=== PATIENT | male | born 1985 | race Caucasian/White ===

== ENCOUNTER 2018-04-02 03:58 | Inpatient (IN) ==
[2018-04-02] MEDS ORDERED: Ketorolac 15 MG/ML VIAL IVP ONE (04:20)
[2018-04-02] MEDS ORDERED: Isovue-370 500 ML INFUS..BTL IV ONE (04:21)
[2018-04-02] MEDS ORDERED: 0.9 % Sodium Chloride 1,000 ML IVC ONE ×2 (04:34→06:31)
[2018-04-02] MEDS ORDERED: 0.9 % Sodium Chloride 1,000 ML ONE (04:36)
[2018-04-02 04:46] LABS: Basophils % 0.2 %; Lymphocytes % 7.8 %; Mean Corpuscular HGB Conc 35.4 g/dL (31.6-35.5)
[2018-04-02 04:47] LABS: Basophils # 0.1 K/mcL (0.0-0.2); Hematocrit 49.5 % (37.5-50.1); Hemoglobin 17.5 g/dL (12.9-16.9); Lymphocytes # 2.5 K/mcL (0.6-4.6); Mean Corpuscular Hemoglobin 31.4 pg (28.0-33.3); Mean Corpuscular Volume 88.7 fL (83.0-100.0); Mean Platelet Volume 11.5 fL (9.4-12.4); Monocytes # 2.6 K/mcL (0.0-1.3); Monocytes % 8.3 %; Neutrophils # 24.9 K/mcL (1.6-8.9); Platelet Count 224 K/mcL (140-400); Red Blood Count 5.58 M/mcL (4.19-5.50); Red Cell Distribution Width 12.8 % (11.5-14.5); Segmented Neutrophils % 78.7 %
[2018-04-02 05:06] LABS: Albumin 4.8 g/dL (3.5-5.7); Albumin/Globulin Ratio 1.4 (1.1-2.2); Bilirubin,Total 1.1 mg/dL (0.3-1.0); Globulin 3.4 g/dL (2.4-3.5); Platelet Estimate Normal (Normal); Potassium 4.3 mEq/L (3.5-5.1); Total Protein 8.2 g/dL (6.4-8.9)
--- NOTE | 2018-04-02 05:50 | Emergency Department Note ---
Disposition Clinical Impression: Tachycardia Acute appendicitis Qualifiers: Acute appendicitis type: with localized peritonitis Qualified Code(s): K35.3 - Acute appendicitis with localized peritonitis Sepsis Qualifiers: Sepsis type: sepsis due to unspecified organism Qualified Code(s): A41.9 - Sepsis, unspecified organism Acute renal failure Qualifiers: Acute renal failure type: unspecified Qualified Code(s): N17.9 - Acute kidney failure, unspecified Disposition: Still a Patient Condition: Fair Referrals: NONE,PCP [Primary Care Provider] - Time of Disposition: 06:35 Abdominal Pain HPI - General Chief Complaint: ED Abdominal Pain Stated Complaint: Hernia Pain Time Seen by Provider: 04/02/18 04:20 Source: patient Mode of arrival: private vehicle Limitations: no limitations Nursing Notes Reviewed: Yes Vital Signs Reviewed: Yes - History of Present Illness HPI Narrative: Cristóbal is a pleasant 32 yo M. he presents the emergency room with a chief complaint of abdominal pain starting Saturday around 1 AM with some vomiting. He notes a long-standing history of a hernia however states the hernia pain will come and go starting for roughly lasting roughly 2 hours and going away either on its own or with one dose of ibuprofen. Since Saturday and the vomiting he has not been able to control this pain with [id number] medication which is atypical for him. He denies fevers chest pain nausea vomiting. He states that he feels sweaty. He denies past medical history of kidney issues. He states he has had decreased oral intake. Notes generalized pelvic pain and states that he feels the pain is in his testicle / scrotal area. He also notes mild and diffuse abdominal pain. Pt Subjective Complaint: abdominal pain Onset (ago): day(s) Consistency: constant Location: diffuse Pain Scale: 7 Improves with: nothing Worsens with: movement - Related Data Previous Rx's Medication Instructions Recorded Amoxicillin 875 mg PO BID #20 tablet 03/25/16 Sulfacetamide Sodium 10% OPTH 2 drop RIGHT EYE QID #5 ml 03/25/16 [Bleph 10] Allergies Allergy/AdvReac Type Severity Reaction Status Date / Time No Known Allergies Allergy Verified 04/02/18 03:59 All systems ED: reviewed and negative except as stated. Review of Systems: As Per HPI Limitations: ROS unobtainable due to patients medical condition Constitutional: Denies: fever, chills, weight change Eyes: Reports: as per HPI ENT ED: Reports: as per HPI Cardiovascular: Reports: as per HPI Respiratory: Reports: as per HPI Gastrointestinal: Reports: abdominal pain. Denies: melena, hematochezia Genitourinary: Denies: urgency, dysuria Musculoskeletal: Reports: as per HPI Abdominal Pain PMH - Past Medical History Medical history: Reports: other Male Surgical History: Reports: orthopedic, other Psychiatric history: Reports: no psych history - Social History Smoking status: Current every day smoker Alcohol use: Reports: rarely Drug use: Reports: none Physical Exam - General Limitations: no limitations General appearance: alert - Head Head exam: atraumatic - ENT ENT exam: normal exam - Neck Neck exam: Present: normal inspection - Respiratory Respiratory exam: Present: normal lung sounds bilaterally - Cardiovascular Cardiovascular exam: Present: regular rate, normal rhythm - Abdominal Exam Abdominal exam: Present: tenderness, rebound, normal bowel sounds - Male exam: Present: normal inspection (No palpable hernia direct or indirect), normal testicular lie, circumcised. Absent: penile swelling, balanitis, priapism Course Course Narrative: Patient eats Sirs criteria with tachycardia in the 140s, leukocytosis at 30/30, 000, perforated acute appendicitis on CT along with acute renal failure. IV Unasyn was ordered immediately following review of CT. I discussed this case initially with Dr. Flood who requested IV antibiotics for 24-48 hours prior to taking him to the OR. Dr. Flood came into the emergency room to personally evaluate the patient. Patient was given 3 L of fluid in the emergency room. Hair of the panic patient was transferred both to Dr. Barreto and 2 [employer] [facility] pending the end of my shift. The question remains where who will admit the patient. Dr. Flood and Dr. Olivas are both involved in the patient's care. Vital Signs Temperature 98.1 F 04/02/18 03:59 Pulse Rate 144 04/02/18 03:59 Respiratory Rate 20 04/02/18 03:59 Blood Pressure 137/92 04/02/18 03:59 O2 Sat by Pulse Oximetry 97 04/02/18 03:59 Temperature 98.1 F 04/02/18 03:59 Pulse Rate 123 04/02/18 04:30 Respiratory Rate 20 04/02/18 04:30 Blood Pressure 124/92 04/02/18 04:30 O2 Sat by Pulse Oximetry 99 07/04/18 04:30 Oxygen Delivery Oxygen Delivery Room Air Abdominal Pain - MDM Narrative Medical decision making narrative: Patient with a pulse in the 140s with significant leukocytosis in the 30s. Patient also has new onset renal failure. The suspect - Lab Data Result diagrams: 04/02/18 04:25 04/02/18 04:25 Lab Results 04/02/18 04/02/18 04/02/18 Range/Units 04:25 04:25 04:25 WBC 31.6 H* (4.3-11.1) K/mcL RBC 5.58 H (4.19-5.50) M/mcL Hgb 17.5 H (12.9-16.9) g/dL Hct 49.5 (37.5-50.1) % MCV 88.7 (83.0-100.0) fL MCH 31.4 (28.0-33.3) pg MCHC 35.4 (31.6-35.5) g/dL RDW 12.8 (11.5-14.5) % Plt Count 224 (140-400) K/mcL MPV 11.5 (9.4-12.4) fL Immature Gran % 5.0 H (0-4) % Seg Neutrophils % 78.7 % Lymphocytes % 7.8 % Monocytes % 8.3 % Eosinophils % 0.0 % Basophils % 0.2 % Neutrophils # 24.9 H (1.6-8.9) K/mcL Lymphocytes # 2.5 (0.6-4.6) K/mcL Monocytes # 2.6 H (0.0-1.3) K/mcL Eosinophils # 0.0 (0.0-0.6) K/mcL Basophils # 0.1 (0.0-0.2) K/mcL Platelet Estimate Normal (Normal) Sodium 131 L (136-145) mEq/L Potassium 4.3 (3.5-5.1) mEq/L Chloride 96 L (98-107) mEq/L Carbon Dioxide 20 L (23-29) mEq/L BUN 25 H (6-20) mg/dL Creatinine 2.54 H (0.70-1.30) mg/dL Est GFR ( Amer) 36 L (> 60) Est GFR (Non-Af Amer) 29 L (> 60) BUN/Creatinine Ratio 10 (6-26) Glucose 136 H (70-105) mg/dL Calculated Osmolality 278 L (280-300) Calcium 10.0 (8.6-10.3) mg/dL Total Bilirubin 1.1 H (0.3-1.0) mg/dL AST 18 (13-39) Units/L ALT 56 H (7-52) Units/L Alkaline Phosphatase 42 (34-104) Units/L Serum Total Protein 8.2 (6.4-8.9) g/dL Albumin 4.8 (3.5-5.7) g/dL Globulin 3.4 (2.4-3.5) g/dL Albumin/Globulin Ratio 1.4 (1.1-2.2) Lipase 3 L (11-82) Units/L
[2018-04-02] MEDS ORDERED: Ampicillin/Sulbactam 1,500 MG in 0.9 % Sodium Chloride Mini Bag 100 ML IVPB ONE (06:09)
[2018-04-02 06:18] LABS: INR 1.4; Prothrombin Time 15.9 Seconds (9.4-12.1)
[2018-04-02 06:24] LABS: Bilirubin,Urine Negative (Negative); Blood,Urine Moderate (Negative); Clarity,Urine Cloudy (Clear); Color,Urine Dark Yellow (Yellow); Glucose,Urine (UA) 100 mg/dL (Normal); Ketones,Urine Trace mg/dL (Negative); Leukocyte Esterase,Urine Negative (Negative); Nitrite,Urine Negative (Negative); PH,Urine 5.5 pH Units (5.0-8.0); Protein,Urine 100 mg/dL (Neg-Trace); Specific Gravity,Urine 1.021 (1.010-1.025); Urobilinogen,Urine Normal (Normal)
[2018-04-02 06:27] LABS: Bacteria,Urine None Seen per hpf (None-Few); Squamous Epithelial Cell,Urine Many per lpf (None-Few); WBC,Urine 50-100 per hpf (0-3)
--- NOTE | 2018-04-02 06:31 | Emergency Department Note ---
Disposition Clinical Impression: Tachycardia, Severe sepsis Acute appendicitis Qualifiers: Acute appendicitis type: with localized peritonitis Qualified Code(s): K35.3 - Acute appendicitis with localized peritonitis Acute renal failure Qualifiers: Acute renal failure type: unspecified Qualified Code(s): N17.9 - Acute kidney failure, unspecified Disposition: Admitted As Inpatient Condition: Fair General Adult HPI - General Chief complaint: ED Abdominal Pain Stated complaint: Hernia Pain Time Seen by Provider: 04/02/18 04:20 Source: patient Mode of arrival: private vehicle Limitations: no limitations Nursing Notes Reviewed: Yes Vital Signs Reviewed: Yes - History of Present Illness Pain Scale: 7 - Related Data Previous Rx's Medication Instructions Recorded Amoxicillin 875 mg PO BID #20 tablet 03/25/16 Sulfacetamide Sodium 10% OPTH 2 drop RIGHT EYE QID #5 ml 03/25/16 [Bleph 10] Allergies Allergy/AdvReac Type Severity Reaction Status Date / Time No Known Allergies Allergy Verified 04/02/18 03:59 Constitutional: Denies: fever, chills, weight change Eyes: Reports: as per HPI ENT ED: Reports: as per HPI Cardiovascular: Reports: as per HPI Respiratory: Reports: as per HPI Gastrointestinal: Reports: abdominal pain. Denies: melena, hematochezia Genitourinary: Denies: urgency, dysuria Musculoskeletal: Reports: as per HPI Past Medical History - Past Medical History Medical history: Reports: other Psychiatric history: Reports: no psych history - Social History Smoking Status: Current every day smoker Smokeless Tobacco Status: No Alcohol use: Reports: rarely Drug use: Reports: none Physical Exam - General Limitations: no limitations General appearance: alert Course Vital Signs Temperature 98.1 F 04/02/18 03:59 Pulse Rate 144 04/02/18 03:59 Respiratory Rate 20 04/02/18 03:59 Blood Pressure 137/92 04/02/18 03:59 O2 Sat by Pulse Oximetry 97 04/02/18 03:59 Temperature 99.9 F H 04/02/18 06:34 Pulse Rate 122 04/02/18 06:34 Respiratory Rate 20 04/02/18 06:34 Blood Pressure 155/99 04/02/18 06:34 O2 Sat by Pulse Oximetry 99 04/02/18 06:34 Oxygen Delivery Oxygen Delivery Room Air Medical Decision Making - Lab Data Result diagrams: 04/02/18 04:25 04/02/18 04:25 Lab Results 04/02/18 04/02/18 04/02/18 Range/Units 04:25 04:25 04:25 WBC 31.6 H* (4.3-11.1) K/mcL RBC 5.58 H (4.19-5.50) M/mcL Hgb 17.5 H (12.9-16.9) g/dL Hct 49.5 (37.5-50.1) % MCV 88.7 (83.0-100.0) fL MCH 31.4 (28.0-33.3) pg MCHC 35.4 (31.6-35.5) g/dL RDW 12.8 (11.5-14.5) % Plt Count 224 (140-400) K/mcL MPV 11.5 (9.4-12.4) fL Immature Gran % 5.0 H (0-4) % Seg Neutrophils % 78.7 % Lymphocytes % 7.8 % Monocytes % 8.3 % Eosinophils % 0.0 % Basophils % 0.2 % Neutrophils # 24.9 H (1.6-8.9) K/mcL Lymphocytes # 2.5 (0.6-4.6) K/mcL Monocytes # 2.6 H (0.0-1.3) K/mcL Eosinophils # 0.0 (0.0-0.6) K/mcL Basophils # 0.1 (0.0-0.2) K/mcL Platelet Estimate Normal (Normal) PT (9.4-12.1) Seconds INR Sodium 131 L (136-145) mEq/L Potassium 4.3 (3.5-5.1) mEq/L Chloride 96 L (98-107) mEq/L Carbon Dioxide 20 L (23-29) mEq/L BUN 25 H (6-20) mg/dL Creatinine 2.54 H (0.70-1.30) mg/dL Est GFR ( Amer) 36 L (> 60) Est GFR (Non-Af Amer) 29 L (> 60) BUN/Creatinine Ratio 10 (6-26) Glucose 136 H (70-105) mg/dL Calculated Osmolality 278 L (280-300) Lactic Acid (0.5-2.2) mmol/L Calcium 10.0 (8.6-10.3) mg/dL Total Bilirubin 1.1 H (0.3-1.0) mg/dL AST 18 (13-39) Units/L ALT 56 H (7-52) Units/L Alkaline Phosphatase 42 (34-104) Units/L Serum Total Protein 8.2 (6.4-8.9) g/dL Albumin 4.8 (3.5-5.7) g/dL Globulin 3.4 (2.4-3.5) g/dL Albumin/Globulin Ratio 1.4 (1.1-2.2) Lipase 3 L (11-82) Units/L Urine Color (Yellow) Urine Clarity (Clear) Urine pH (5.0-8.0) pH Units Ur Specific [place] (1.010-1.025) Urine Protein (Neg-Trace) mg/dL Urine Glucose (UA) (Normal) mg/dL Urine Ketones (Negative) mg/dL Urine Blood (Negative) Urine Nitrite (Negative) Urine Bilirubin (Negative) Urine Urobilinogen (Normal) mg/dL Ur Leukocyte Esterase (Negative) Urine Microscopic RBC (0-3) per hpf Urine Microscopic WBC (0-3) per hpf Ur Squamous Epith Cells (None-Few) per lpf Urine Bacteria (None-Few) per hpf Hyaline Casts 04/02/18 04/02/18 04/02/18 Range/Units 04:25 05:20 06:15 WBC (4.3-11.1) K/mcL RBC (4.19-5.50) M/mcL Hgb (12.9-16.9) g/dL Hct (37.5-50.1) % MCV (83.0-100.0) fL MCH (28.0-33.3) pg MCHC (31.6-35.5) g/dL RDW (11.5-14.5) % Plt Count (140-400) K/mcL MPV (9.4-12.4) fL Immature Gran % (0-4) % Seg Neutrophils % % Lymphocytes % % Monocytes % % Eosinophils % % Basophils % % Neutrophils # (1.6-8.9) K/mcL Lymphocytes # (0.6-4.6) K/mcL Monocytes # (0.0-1.3) K/mcL Eosinophils # (0.0-0.6) K/mcL Basophils # (0.0-0.2) K/mcL Platelet Estimate (Normal) PT 15.9 H (9.4-12.1) Seconds INR 1.4 Sodium (136-145) mEq/L Potassium (3.5-5.1) mEq/L Chloride (98-107) mEq/L Carbon Dioxide (23-29) mEq/L BUN (6-20) mg/dL Creatinine (0.70-1.30) mg/dL Est GFR ( Amer) (> 60) Est GFR (Non-Af Amer) (> 60) BUN/Creatinine Ratio (6-26) Glucose (70-105) mg/dL Calculated Osmolality (280-300) Lactic Acid 2.3 H (0.5-2.2) mmol/L Calcium (8.6-10.3) mg/dL Total Bilirubin (0.3-1.0) mg/dL AST (13-39) Units/L ALT (7-52) Units/L Alkaline Phosphatase (34-104) Units/L Serum Total Protein (6.4-8.9) g/dL Albumin (3.5-5.7) g/dL Globulin (2.4-3.5) g/dL Albumin/Globulin Ratio (1.1-2.2) Lipase (11-82) Units/L Urine Color Dark Yellow (Yellow) Urine Clarity Cloudy A (Clear) Urine pH 5.5 (5.0-8.0) pH Units Ur Specific [place] 1.021 (1.010-1.025) Urine Protein 100 H (Neg-Trace) mg/dL Urine Glucose (UA) 100 H (Normal) mg/dL Urine Ketones Trace H (Negative) mg/dL Urine Blood Moderate H (Negative) Urine Nitrite Negative (Negative) Urine Bilirubin Negative (Negative) Urine Urobilinogen Normal (Normal) mg/dL Ur Leukocyte Esterase Negative (Negative) Urine Microscopic RBC 5-15 H (0-3) per hpf Urine Microscopic WBC 50-100 H (0-3) per hpf Ur Squamous Epith Cells Many H (None-Few) per lpf Urine Bacteria None Seen (None-Few) per hpf Hyaline Casts Test Not Performed Critical Care Time Critical Care Time: Yes Total Critical Care Time: 40 Attestation: Critical care performed: Time is exclusive of separately billable procedures. Time includes: direct patient care, patient reassessment, coordination of patient care, interpretation of data (laboratory data, radiology data, and respiratory data), review of patient's medical records, medical consultation and documentation of patient care. Procedures included in critical care time: Procedures excluded from critical care time: Attestation Statement - Attestation Attestation: IDayo MD, personally evaluated this patient and discussed their management with the midlevel provicer, PAC/DIRECTOR OF ARCHITECTURE. I reviewed the midlevel provider 's note and agree with the documented findings, medical decision making, and plan of care. 32-year-old male presents to the emergency department with a complaint of lower abdominal pain for 3 days prior to arrival. No definite fever but patient states he has had chills and sweats. Patient concerned that it may be a hernia. The pain is bilateral across the lower abdomen and also pain down into his testicles. Some nausea and vomiting and anorexia. No GI bleed symptoms. No UTI symptoms. On examination patient is a well-developed well-nourished male in mild distress. He is alert and oriented 3. There is no cyanosis. Patient is now and mildly diaphoretic. Breath sounds are clear and equal bilaterally. Heart regular and tachycardic. Abdomen soft with marked diffuse lower abdominal tenderness with guarding. Labs reviewed. WBC 31.6. Creatinine 2.54. Lactic acid 2.3. CT of the abdomen and pelvis shows: Perforated acute appendicitis with severe diffuse periappendiceal inflammatory stranding and small collections (felt to be outside loops of bowel) with gas-fluid levels, largest measuring around 2.5 cm in size. The surgeon construction worker, Dr. Flood, was consulted and evaluated the patient in the emergency department. He recommended admission to the hospitalist for IV antibiotics for 24-48 hours prior to surgery. The hospitalist, Dr. Olivas, was consulted for admission. After discussion between Dr. Flood and Dr. Olivas the patient will be admitted to Dr. Flood's service.
[2018-04-02] MEDS ORDERED: MetroNIDAZOLE 500 MG/100 ML 500 MG/100 ML BAG IVPB ONE (06:33)
--- NOTE | 2018-04-02 06:33 | General Surg History&Physical ---
Date of Encounter: 04/02/18 Time of Encounter: 06:31 Assessment and Plan (1) Acute perforated appendicitis Current Visit: Yes Status: Acute The assessment and plan as outlined above was discussed with the patient and/or family members who expressed understanding and agreement. All questions were answered. I explained to the patient that he has evidence of severe acute appendicitis with/phlegmon with perforation. At this level of the most important thing will be IV fluid hydration as well as IV antibiotics and pain control. If he had proceed with a surgical procedure would have to performed likely right colectomy. My goal will be for rehydration and we will consult hospitalist as well (I spoke with Dr. Olivas personally). (2) Phlegmon Current Visit: Yes Status: Acute The assessment and plan as outlined above was discussed with the patient and/or family members who expressed understanding and agreement. All questions were answered. See above. (3) Acute kidney injury Current Visit: Yes Status: Acute The assessment and plan as outlined above was discussed with the patient and/or family members who expressed understanding and agreement. All questions were answered. 7 with IV fluid hydration. Patient has had 1 L IV fluid bolus and is on his second fluid bolus. If he does not have significant urine output by noon he will require a Doherty catheter. Continue to monitor closely. History of Present Illness Chief complaint: Lower abdominal pain HPI: Mr. Qureshi is a 32 year old male with no significant past medical history who presents to [facility] emergency room with a three-day history of severe right lower quadrant abdominal pain and lower abdominal pain symptoms. He states that he did have an episode of nausea vomiting initially on Saturday with severe pain and these been having copious amounts of diarrhea since that time. He states the pain has been continuous sharp stabbing radiating from the above is down to the pelvic region particularly on the right side. Because of his continued pain symptoms he presented to [facility] for further evaluation. Past Med Surg Social Fam HX - Past Medical History Medical history: other Additional medical history: Hernia Psychiatric history: no psych history - Past Surgical History Surgical History: other (Right foot surgery) - Social History Smoking Status: Current every day smoker Smokeless Tobacco Status: No Alcohol use: rarely Drug use: none Medications and Allergies Amoxicillin 875 mg PO BID #20 tablet 03/25/16 [Rx] Sulfacetamide Sodium 10% OPTH [Bleph 10] 2 drop RIGHT EYE QID #5 ml 03/25/16 [Rx ] 3 Allergy/AdvReac Type Severity Reaction Status Date / Time No Known Allergies Allergy Verified 04/02/18 03:59 Review of Systems All systems PM: reviewed and no additional remarkable complaints except as stated All systems PM: The remainder of the systems were reviewed and are negative General Surgery Exam Initial Vital Signs Temp Pulse Resp BP Pulse Ox 98.1 F 144 20 137/92 97 04/02/18 03:59 04/02/18 03:59 04/02/18 03:59 04/02/18 03:59 04/02/18 03:59 - General physical appearance well developed, well nourished, severe distress - Respiratory normal expansion, normal respiratory effort, clear to auscultation - Cardiovascular Cardiovascular exam: Present: tachycardia, no murmurs/rubs/gallops - Abdomen Abdomen general surgery: Present: bowel sounds present, tender (Pain generalized but mainly in the right lower quadrant) - Integumentary Integumentary general surgery: Present: warm and dry - Neurologic Present: CN 2-12 grossly intact - Musculoskeletal Present: other (No clubbing cyanosis or edema) - Psychiatric Psychiatric general surgery: Present: A&Ox3, oriented to person, oriented to place, oriented to time Results - Labs 04/02/18 04:25 04/02/18 04:25 Abnormal lab results WBC 31.6 K/mcL (4.3-11.1) H* 04/02/18 04:25 RBC 5.58 M/mcL (4.19-5.50) H 04/02/18 04:25 Hgb 17.5 g/dL (12.9-16.9) H 04/02/18 04:25 Immature Gran % 5.0 % (0-4) H 04/02/18 04:25 Neutrophils # 24.9 K/mcL (1.6-8.9) H 04/02/18 04:25 Monocytes # 2.6 K/mcL (0.0-1.3) H 04/02/18 04:25 PT 15.9 Seconds (9.4-12.1) H 04/02/18 04:25 Sodium 131 mEq/L (136-145) L 04/02/18 04:25 Chloride 96 mEq/L (98-107) L 04/02/18 04:25 Carbon Dioxide 20 mEq/L (23-29) L 04/02/18 04:25 BUN 25 mg/dL (6-20) H 04/02/18 04:25 Creatinine 2.54 mg/dL (0.70-1.30) H 04/02/18 04:25 Est GFR ( Amer) 36 (> 60) L 04/02/18 04:25 Est GFR (Non-Af Amer) 29 (> 60) L 04/02/18 04:25 Glucose 136 mg/dL (70-105) H 04/02/18 04:25 Calculated Osmolality 278 (280-300) L 04/02/18 04:25 Lactic Acid 2.3 mmol/L (0.5-2.2) H 04/02/18 05:20 Total Bilirubin 1.1 mg/dL (0.3-1.0) H 04/02/18 04:25 ALT 56 Units/L (7-52) H 04/02/18 04:25 Lipase 3 Units/L (11-82) L 04/02/18 04:25 Urine Clarity Cloudy (Clear) A 04/02/18 06:15 Urine Protein 100 mg/dL (Neg-Trace) H 04/02/18 06:15 Urine Glucose (UA) 100 mg/dL (Normal) H 04/02/18 06:15 Urine Ketones Trace mg/dL (Negative) H 04/02/18 06:15 Urine Blood Moderate (Negative) H 04/02/18 06:15 Diabetes panel 04/02/18 Range/Units 04:25 Sodium 131 L (136-145) mEq/L Potassium 4.3 (3.5-5.1) mEq/L Chloride 96 L (98-107) mEq/L Carbon Dioxide 20 L (23-29) mEq/L BUN 25 H (6-20) mg/dL Creatinine 2.54 H (0.70-1.30) mg/dL Glucose 136 H (70-105) mg/dL Calcium 10.0 (8.6-10.3) mg/dL AST 18 (13-39) Units/L ALT 56 H (7-52) Units/L Alkaline Phosphatase 42 (34-104) Units/L Albumin 4.8 (3.5-5.7) g/dL Calcium panel 04/02/18 Range/Units 04:25 Calcium 10.0 (8.6-10.3) mg/dL Albumin 4.8 (3.5-5.7) g/dL Pituitary panel 04/02/18 Range/Units 04:25 Sodium 131 L (136-145) mEq/L Potassium 4.3 (3.5-5.1) mEq/L Chloride 96 L (98-107) mEq/L Carbon Dioxide 20 L (23-29) mEq/L BUN 25 H (6-20) mg/dL Creatinine 2.54 H (0.70-1.30) mg/dL Glucose 136 H (70-105) mg/dL Calcium 10.0 (8.6-10.3) mg/dL Adrenal panel 04/02/18 Range/Units 04:25 Sodium 131 L (136-145) mEq/L Potassium 4.3 (3.5-5.1) mEq/L Chloride 96 L (98-107) mEq/L Carbon Dioxide 20 L (23-29) mEq/L BUN 25 H (6-20) mg/dL Creatinine 2.54 H (0.70-1.30) mg/dL Glucose 136 H (70-105) mg/dL Calcium 10.0 (8.6-10.3) mg/dL Total Bilirubin 1.1 H (0.3-1.0) mg/dL AST 18 (13-39) Units/L ALT 56 H (7-52) Units/L Alkaline Phosphatase 42 (34-104) Units/L Albumin 4.8 (3.5-5.7) g/dL All other labs normal. - Imaging CT scan - abdomen: report reviewed, image reviewed (I personally reviewed the CT scan images and report which shows evidence of severe inflammation of the appendix and cecum as well as terminal ileum with this perforation.)
[2018-04-02] MEDS ORDERED: *HR* FentaNYL (PF) 100 MCG/2 ML VIAL IVP ONE (06:37)
[2018-04-02] MEDS ORDERED: Ondansetron 4 MG/2 ML VIAL IVP ONE (06:38)
--- NOTE | 2018-04-02 07:14 | Emergency Department Note ---
Disposition Clinical Impression: Tachycardia, Severe sepsis Acute appendicitis Qualifiers: Acute appendicitis type: with localized peritonitis Qualified Code(s): K35.3 - Acute appendicitis with localized peritonitis Acute renal failure Qualifiers: Acute renal failure type: unspecified Qualified Code(s): N17.9 - Acute kidney failure, unspecified Disposition: Admitted As Inpatient Condition: Fair General Adult HPI - General Chief complaint: ED Abdominal Pain Stated complaint: Hernia Pain Time Seen by Provider: 04/02/18 04:20 Source: patient Mode of arrival: private vehicle Limitations: no limitations Nursing Notes Reviewed: Yes Vital Signs Reviewed: Yes - History of Present Illness Pain Scale: 7 - Related Data Home Medications Medication Instructions Recorded Confirmed Ibuprofen [Motrin Ib] 200 mg PO DAILY PRN 04/02/18 04/02/18 Allergies Allergy/AdvReac Type Severity Reaction Status Date / Time No Known Allergies Allergy Verified 04/02/18 03:59 Constitutional: Denies: fever, chills, weight change Eyes: Reports: as per HPI ENT ED: Reports: as per HPI Cardiovascular: Reports: as per HPI Respiratory: Reports: as per HPI Gastrointestinal: Reports: abdominal pain. Denies: melena, hematochezia Genitourinary: Denies: urgency, dysuria Musculoskeletal: Reports: as per HPI Past Medical History - Past Medical History Medical history: Reports: other Surgical history: Reports: other (Right foot surgery) Psychiatric history: Reports: no psych history - Social History Smoking Status: Current every day smoker Smokeless Tobacco Status: No Alcohol use: Reports: rarely Drug use: Reports: none Physical Exam - General Limitations: no limitations General appearance: alert Course Course Narrative: Assumed care of this patient from Soraya Lynch PA-C at shift change. Patient has a perforated appendicitis and is septic. Dr. Flood has 30 seen the patient and has consulted with Dr. Olivas. I spoke with Dr. Olivas. He confirms that Dr. Flood will be admitting the patient to his service. Case was discussed with Dr. Barreto. He has had [id number] M with the patient and agrees with the assessment, plan. He recommends giving Flagyl. This has been ordered. Patient complains of a return of his pain. He describes it as moderate. Pain meds have been ordered. He denies nausea or vomiting. He denies chills. Blood pressure has been elevated, stable. Heart rate is down to 118. Repeat lactate has been ordered. An additional fluid bolus has also been ordered. Vital Signs Temperature 98.1 F 04/02/18 03:59 Pulse Rate 144 04/02/18 03:59 Respiratory Rate 20 04/02/18 03:59 Blood Pressure 137/92 04/02/18 03:59 O2 Sat by Pulse Oximetry 97 04/02/18 03:59 Temperature 99.0 F 04/02/18 15:26 Pulse Rate 123 04/02/18 17:11 Respiratory Rate 20 04/02/18 17:11 Blood Pressure 119/85 04/02/18 15:26 O2 Sat by Pulse Oximetry 93 04/02/18 17:11 Oxygen Delivery Oxygen Delivery Room Air Medical Decision Making - Lab Data Result diagrams: 04/02/18 04:25 04/02/18 16:50 Lab Results 04/02/18 04/02/18 04/02/18 Range/Units 04:25 04:25 04:25 WBC 31.6 H* (4.3-11.1) K/mcL RBC 5.58 H (4.19-5.50) M/mcL Hgb 17.5 H (12.9-16.9) g/dL Hct 49.5 (37.5-50.1) % MCV 88.7 (83.0-100.0) fL MCH 31.4 (28.0-33.3) pg MCHC 35.4 (31.6-35.5) g/dL RDW 12.8 (11.5-14.5) % Plt Count 224 (140-400) K/mcL MPV 11.5 (9.4-12.4) fL Immature Gran % 5.0 H (0-4) % Seg Neutrophils % 78.7 % Lymphocytes % 7.8 % Monocytes % 8.3 % Eosinophils % 0.0 % Basophils % 0.2 % Neutrophils # 24.9 H (1.6-8.9) K/mcL Lymphocytes # 2.5 (0.6-4.6) K/mcL Monocytes # 2.6 H (0.0-1.3) K/mcL Eosinophils # 0.0 (0.0-0.6) K/mcL Basophils # 0.1 (0.0-0.2) K/mcL Platelet Estimate Normal (Normal) PT (9.4-12.1) Seconds INR Sodium 131 L (136-145) mEq/L Potassium 4.3 (3.5-5.1) mEq/L Chloride 96 L (98-107) mEq/L Carbon Dioxide 20 L (23-29) mEq/L BUN 25 H (6-20) mg/dL Creatinine 2.54 H (0.70-1.30) mg/dL Est GFR ( Amer) 36 L (> 60) Est GFR (Non-Af Amer) 29 L (> 60) BUN/Creatinine Ratio 10 (6-26) Glucose 136 H (70-105) mg/dL Calculated Osmolality 278 L (280-300) Lactic Acid (0.5-2.2) mmol/L Calcium 10.0 (8.6-10.3) mg/dL Total Bilirubin 1.1 H (0.3-1.0) mg/dL AST 18 (13-39) Units/L ALT 56 H (7-52) Units/L Alkaline Phosphatase 42 (34-104) Units/L Serum Total Protein 8.2 (6.4-8.9) g/dL Albumin 4.8 (3.5-5.7) g/dL Globulin 3.4 (2.4-3.5) g/dL Albumin/Globulin Ratio 1.4 (1.1-2.2) Lipase 3 L (11-82) Units/L Urine Color (Yellow) Urine Clarity (Clear) Urine pH (5.0-8.0) pH Units Ur Specific Interior (1.010-1.025) Urine Protein (Neg-Trace) mg/dL Urine Glucose (UA) (Normal) mg/dL Urine Ketones (Negative) mg/dL Urine Blood (Negative) Urine Nitrite (Negative) Urine Bilirubin (Negative) Urine Urobilinogen (Normal) mg/dL Ur Leukocyte Esterase (Negative) Urine Microscopic RBC (0-3) per hpf Urine Microscopic WBC (0-3) per hpf Ur Squamous Epith Cells (None-Few) per lpf Urine Bacteria (None-Few) per hpf Hyaline Casts 04/02/18 04/02/18 04/02/18 Range/Units 04:25 05:20 06:15 WBC (4.3-11.1) K/mcL RBC (4.19-5.50) M/mcL Hgb (12.9-16.9) g/dL Hct (37.5-50.1) % MCV (83.0-100.0) fL MCH (28.0-33.3) pg MCHC (31.6-35.5) g/dL RDW (11.5-14.5) % Plt Count (140-400) K/mcL MPV (9.4-12.4) fL Immature Gran % (0-4) % Seg Neutrophils % % Lymphocytes % % Monocytes % % Eosinophils % % Basophils % % Neutrophils # (1.6-8.9) K/mcL Lymphocytes # (0.6-4.6) K/mcL Monocytes # (0.0-1.3) K/mcL Eosinophils # (0.0-0.6) K/mcL Basophils # (0.0-0.2) K/mcL Platelet Estimate (Normal) PT 15.9 H (9.4-12.1) Seconds INR 1.4 Sodium (136-145) mEq/L Potassium (3.5-5.1) mEq/L Chloride (98-107) mEq/L Carbon Dioxide (23-29) mEq/L BUN (6-20) mg/dL Creatinine (0.70-1.30) mg/dL Est GFR ( Amer) (> 60) Est GFR (Non-Af Amer) (> 60) BUN/Creatinine Ratio (6-26) Glucose (70-105) mg/dL Calculated Osmolality (280-300) Lactic Acid 2.3 H (0.5-2.2) mmol/L Calcium (8.6-10.3) mg/dL Total Bilirubin (0.3-1.0) mg/dL AST (13-39) Units/L ALT (7-52) Units/L Alkaline Phosphatase (34-104) Units/L Serum Total Protein (6.4-8.9) g/dL Albumin (3.5-5.7) g/dL Globulin (2.4-3.5) g/dL Albumin/Globulin Ratio (1.1-2.2) Lipase (11-82) Units/L Urine Color Dark Yellow (Yellow) Urine Clarity Cloudy A (Clear) Urine pH 5.5 (5.0-8.0) pH Units Ur Specific Interior 1.021 (1.010-1.025) Urine Protein 100 H (Neg-Trace) mg/dL Urine Glucose (UA) 100 H (Normal) mg/dL Urine Ketones Trace H (Negative) mg/dL Urine Blood Moderate H (Negative) Urine Nitrite Negative (Negative) Urine Bilirubin Negative (Negative) Urine Urobilinogen Normal (Normal) mg/dL Ur Leukocyte Esterase Negative (Negative) Urine Microscopic RBC 5-15 H (0-3) per hpf Urine Microscopic WBC 50-100 H (0-3) per hpf Ur Squamous Epith Cells Many H (None-Few) per lpf Urine Bacteria None Seen (None-Few) per hpf Hyaline Casts Test Not Performed Sepsis Reassessment Note - Evaluation Current Stage of Sepsis: severe sepsis (Tachycardia, elevated lactate, acute renal insufficiency) Possible Source of Sepsis: GI tract/intra-abdominal - Focused Exam Date of Encounter: 04/02/18 Time of Encounter: 06:21 Vital Signs: Vital Signs Temp Pulse Resp BP Pulse Ox 04/02/18 06:34 99.9 F H 122 20 155/99 99 Respiratory Exam: Present: CTA bilaterally Cardiovascular Exam: Present: tachycardia. Absent: irregular rhythm Capillary Refill: < 2 seconds Peripheral Pulse Strength: 3+ normal Peripheral Pulse Location: Radial Skin Exam: normal turgor
[2018-04-02] MEDS ORDERED: Ondansetron 4 MG/2 ML VIAL IVP PRN (08:24)
[2018-04-02] MEDS ORDERED: Acetaminophen 325 MG TABLET PO PRN (08:24)
[2018-04-02] MEDS: Pantoprazole 40 MG VIAL IVP SCH (09:56)
[2018-04-02] MEDS: Piperacillin/Tazobactam 3.375 GM in 0.9 % Sodium Chloride Mini Bag 100 ML IVPB SCH ×3 (09:57→23:43)
[2018-04-02] MEDS: 0.9 % Sodium Chloride 1,000 ML IVC SCH ×3 (09:58→23:39)
[2018-04-02] MEDS ORDERED: *HR* FentaNYL (PF) 100 MCG/2 ML VIAL IVP PRN (10:34)
[2018-04-02] MEDS: *HR* FentaNYL (PF) 100 MCG/2 ML VIAL IVP PRN ×5 (10:52→22:29)
[2018-04-02] MEDS: Acetaminophen IV 1,000 MG/100 ML INFUS..BTL IVPB SCH ×3 (12:08→23:45)
--- NOTE | 2018-04-02 16:56 | Internal Medicine Consult Note ---
Date of Encounter: 04/02/18 Time of Encounter: 11:00 - Assessment and plan (1) Severe sepsis Current Visit: Yes Status: Acute Assessment and plan: In the ER, patient was found to have sepsis with a white blood cell count of 31.6, heart rate 113, MAXIMUM TEMPERATURE of 101.5 and acute kidney injury with creatinine of 2.54. Secondary to perforated acute appendicitis Continue IV fluid resuscitation with IV antibiotics as below (2) Acute perforated appendicitis Current Visit: Yes Status: Acute Assessment and plan: Gen. surgery following with recommendations for V fluid resuscitation, IV antibiotics and pain control before proceeding with surgery Continue IV Zosyn (3) Acute renal failure Current Visit: Yes Status: Acute Assessment and plan: Secondary to severe sepsis as above Continue fluid resuscitation and will monitor renal function. Qualifiers: Acute renal failure type: unspecified Qualified Code(s): N17.9 - Acute kidney failure, unspecified (4) Smoker Current Visit: Yes Status: Acute Assessment and plan: Smoking cessation (5) DVT prophylaxis Current Visit: Yes Status: Acute Assessment and plan: Subcutaneous heparin - Time Spent With Patient Total time spent is greater than 50% in coordination of care (as documented) at patient's floor/unit and/or counseling patient: Internal Medicine - CN: HPI - Data of Consult Patient: new to practice Consult date: 04/02/18 Requesting Physician: Alvarado Flood MD - Consult Narrative Reason for consult: Medical management History of present illness: Patient is a 32-year-old male with no significant past medical history other than being a 50 pack year smoker who presents to the ER on 04/02/18 due to abdominal pain. Patient reports that his abdominal pain started approximate 4 days ago which he describes as sharp without any radiation. Patients abdominal pain is generalized and is constant without any relieving or provoking factors. Patient decided come to the ER for evaluation. In the ER, patient was found to have sepsis with a white blood cell count of 31.6, heart rate 113, MAXIMUM TEMPERATURE of 101.5 and acute kidney injury with creatinine of 2.54. CT of the abdomen/pelvis was done which showed perforated acute appendicitis with severe diffuse periappendiceal inflammatory stranding and small collections (felt to be outside loops of bowel) with gas-fluid levels, largest measuring around 2.5 cm in size. Patient was admitted to general surgery service for management of perforated acute appendicitis and hospitalist team was consulted for medical management. Past Med Surg Social Fam HX - Past Medical History Medical history: other Additional medical history: patient thought he had a inguinal hernia-not confirmed Psychiatric history: no psych history - Past Surgical History Surgical History: other (Right foot surgery) Additional surgical history: ankle surgery - Social History Smoking Status: Current every day smoker Smokeless Tobacco Status: No Alcohol use: rarely Drug use: none - Additional Family History Additional family history: Noncontributory All systems: reviewed and no additional remarkable complaints except as stated ( Abdominal pain) Internal Medicine - CN: Meds Ibuprofen [Motrin Ib] 200 mg PO DAILY PRN 04/02/18 [History] 3 Allergy/AdvReac Type Severity Reaction Status Date / Time No Known Allergies Allergy Verified 04/02/18 03:59 Internal Medicine - CN: Exam - Constitutional Vitals: Temp Pulse Resp BP Pulse Ox 99.0 F 112 16 119/85 93 04/02/18 15:26 04/02/18 15:31 04/02/18 15:26 04/02/18 15:26 04/02/18 15:26 General appearance IM: Present: A&O X 3, no acute distress - Head Head exam: Present: atraumatic - Eye Eye exam: Present: normal appearance - ENT ENT exam: Present: mucous membranes moist - Respiratory Respiratory exam: Present: CTAB. Absent: rales, respiratory distress, rhonchi, wheezes, tachypnea - Cardiovascular Cardiovascular exam IM: Present: RRR. Absent: rubs, systolic murmur - GI/Abdominal GI/Abdominal exam IM: Present: guarding, soft, tenderness. Absent: no peritoneal signs - Extremities Exam Extremities exam IM: Absent: pedal edema - Neurological Exam Neurological exam: Present: oriented X3 - Psychiatric Psychiatric exam: Present: normal mood - Skin Skin exam IM: Present: normal color Internal Medicine - CN: Reslt - Labs CBC & Chem 7: 04/02/18 04:25 04/02/18 04:25 - ABG Interpretation ABG results: PT/INR, D-dimer PT 15.9 Seconds (9.4-12.1) H 04/02/18 04:25 Consult Discharge Plan - Plan Referrals: NONE,PCP [Primary Care Provider] -
[2018-04-02] MEDS: *HR* Heparin 5,000 UNIT/ML VIAL SQ SCH (17:01)
[2018-04-02 17:23] LABS: BUN/Creatinine Ratio 15 (6-26); Blood Urea Nitrogen 21 mg/dL (6-20); Calcium 8.6 mg/dL (8.6-10.3); Carbon Dioxide 21 mEq/L (23-29); Chloride 105 mEq/L (98-107); Glucose 105 mg/dL (70-105); Osmolality,Calculated 283 (280-300); Potassium 4.1 mEq/L (3.5-5.1); Sodium 135 mEq/L (136-145); eGFR For African Americans > 60 (> 60); eGFR For Non-African Americans 57 (> 60)
[2018-04-02] MEDS: OXYCODONE Oral CONC 10 MG/0.5 ML ORAL.SYG SL PRN (23:41)
[2018-04-03] MEDS: OXYCODONE Oral CONC 10 MG/0.5 ML ORAL.SYG SL PRN ×4 (04:38→20:23)
[2018-04-03 04:57] LABS: Hematocrit 44.2 % (37.5-50.1); Mean Corpuscular HGB Conc 34.2 g/dL (31.6-35.5); Mean Corpuscular Hemoglobin 31.7 pg (28.0-33.3); Mean Corpuscular Volume 92.7 fL (83.0-100.0); Mean Platelet Volume 11.5 fL (9.4-12.4); Platelet Count 153 K/mcL (140-400); Red Blood Count 4.77 M/mcL (4.19-5.50); Red Cell Distribution Width 13.1 % (11.5-14.5)
[2018-04-03 05:11] LABS: BUN/Creatinine Ratio 15 (6-26); Blood Urea Nitrogen 15 mg/dL (6-20); Calcium 9.1 mg/dL (8.6-10.3); Carbon Dioxide 25 mEq/L (23-29); Chloride 104 mEq/L (98-107); Glucose 79 mg/dL (70-105); Osmolality,Calculated 282 (280-300); Potassium 3.8 mEq/L (3.5-5.1); Sodium 136 mEq/L (136-145); eGFR For African Americans > 60 (> 60); eGFR For Non-African Americans > 60 (> 60)
[2018-04-03 05:17] LABS: Hemoglobin 15.1 g/dL (12.9-16.9)
[2018-04-03] MEDS: 0.9 % Sodium Chloride 1,000 ML IVC SCH ×3 (05:42→19:15)
[2018-04-03] MEDS: *HR* FentaNYL (PF) 100 MCG/2 ML VIAL IVP PRN ×6 (05:43→22:13)
[2018-04-03] MEDS: *HR* Heparin 5,000 UNIT/ML VIAL SQ SCH ×2 (05:43→18:30)
[2018-04-03] MEDS: Acetaminophen IV 1,000 MG/100 ML INFUS..BTL IVPB SCH ×4 (06:31→23:20)
[2018-04-03] MEDS: Pantoprazole 40 MG VIAL IVP SCH (07:31)
[2018-04-03] MEDS: Piperacillin/Tazobactam 3.375 GM in 0.9 % Sodium Chloride Mini Bag 100 ML IVPB SCH ×3 (07:31→23:21)
--- NOTE | 2018-04-03 07:48 | General Surgery Progress Note ---
Date of Encounter: 04/03/18 Time of Encounter: 07:47 - Assessment and Plan (1) Acute perforated appendicitis Current Visit: Yes Status: Acute I am pleased that the patient has continued to improve. Will continue with the current IV fluids and start clear liquids. If he tolerates the clears and we will consider decreasing his IV fluids. Continue with IV antibiotics at this time. (2) Phlegmon Current Visit: Yes Status: Acute See above. (3) Acute kidney injury Current Visit: Yes Status: Acute Creatinine has normalized. Continue to follow. Subjective Patient reports: other (Patient states that he feels much better. He is been having positive urination. He denies any nausea and has some mild pain to palpation. He does have an increased appetite.) Objective Vital Signs - Last 8 Hours Temp Pulse Resp BP Pulse Ox 04/03/18 07:41 107 20 93 04/03/18 07:15 98.7 F 118 20 147/92 93 04/03/18 00:28 98.9 F 106 16 134/81 93 Intake and Output 04/02/18 04/02/18 04/03/18 15:59 23:59 07:59 Intake Total 200 / 200 2200 / 2200 1300 / 1300 Output Total 650 / 650 1025 / 1025 950 / 950 Balance -450 / -450 1175 / 1175 350 / 350 Intake: IV Fluids 200 / 200 2200 / 2200 1300 / 1300 0.9 % Sodium Chloride 1,000 ML 2000 / 2000 1000 / 1000 @ 150 mls/hr IVC .Q6H40M [facility] Rx #:[id number] Ofirmev 1,000 mg/100 ml 1,000 100 / 100 100 / 100 200 / 200 mg In 100 ml @ 400 mls/hr IVPB Q6HR [facility] Rx#:[id number] Zosyn 3.375 GM In 0.9 % Sodium 100 / 100 100 / 100 100 / 100 Chloride (Mini-Bag +) 100 ML @ 25 mls/hr IVPB Q8HR [facility] Rx#: [id number] Output: Urine 650 / 650 1025 / 1025 950 / 950 Other: Meal NPO # Voids 2 1 1 Blood Glucose* 110 107 83 - General physical appearance well nourished, no distress - Respiratory normal expansion, normal respiratory effort - Abdomen Abdomen: Present: bowel sounds present, tender (Mild tenderness to palpation in the RLQ) - Labs 04/03/18 04:37 04/03/18 04:37 Diabetes panel 04/02/18 04/03/18 Range/Units 16:50 04:37 Sodium 135 L 136 (136-145) mEq/L Potassium 4.1 3.8 (3.5-5.1) mEq/L Chloride 105 104 (98-107) mEq/L Carbon Dioxide 21 L 25 (23-29) mEq/L BUN 21 H 15 (6-20) mg/dL Creatinine 1.44 H 0.99 (0.70-1.30) mg/dL Glucose 105 79 (70-105) mg/dL Calcium 8.6 9.1 (8.6-10.3) mg/dL Calcium panel 04/02/18 04/03/18 Range/Units 16:50 04:37 Calcium 8.6 9.1 (8.6-10.3) mg/dL Pituitary panel 04/02/18 04/03/18 Range/Units 16:50 04:37 Sodium 135 L 136 (136-145) mEq/L Potassium 4.1 3.8 (3.5-5.1) mEq/L Chloride 105 104 (98-107) mEq/L Carbon Dioxide 21 L 25 (23-29) mEq/L BUN 21 H 15 (6-20) mg/dL Creatinine 1.44 H 0.99 (0.70-1.30) mg/dL Glucose 105 79 (70-105) mg/dL Calcium 8.6 9.1 (8.6-10.3) mg/dL Adrenal panel 04/02/18 04/03/18 Range/Units 16:50 04:37 Sodium 135 L 136 (136-145) mEq/L Potassium 4.1 3.8 (3.5-5.1) mEq/L Chloride 105 104 (98-107) mEq/L Carbon Dioxide 21 L 25 (23-29) mEq/L BUN 21 H 15 (6-20) mg/dL Creatinine 1.44 H 0.99 (0.70-1.30) mg/dL Glucose 105 79 (70-105) mg/dL Calcium 8.6 9.1 (8.6-10.3) mg/dL Consult Discharge Plan - Plan Referrals: NONE,PCP [Primary Care Provider] -
--- NOTE | 2018-04-03 10:05 | Internal Med Progress Note ---
Date of Encounter: 04/03/18 Time of Encounter: 11:00 - Assessment and plan (1) Severe sepsis Current Visit: Yes Status: Resolved Assessment and plan: In the ER, patient was found to have sepsis with a white blood cell count of 31.6, heart rate 113, MAXIMUM TEMPERATURE of 101.5 and acute kidney injury with creatinine of 2.54. Today, patient's leukocytosis has now improved to 14.2 and patient afebrile resolved VINICIUS Continue IV fluid resuscitation with IV antibiotics as below (2) Acute perforated appendicitis Current Visit: Yes Status: Acute Assessment and plan: Gen. surgery following with recommendations for V fluid resuscitation, IV antibiotics and pain control before proceeding with surgery Continue IV Zosyn (3) Acute renal failure Current Visit: Yes Status: Resolved Assessment and plan: Resolved; continue to monitor Qualifiers: Acute renal failure type: unspecified Qualified Code(s): N17.9 - Acute kidney failure, unspecified (4) Smoker Current Visit: Yes Status: Acute Assessment and plan: Smoking cessation (5) DVT prophylaxis Current Visit: Yes Status: Acute Assessment and plan: Subcutaneous heparin - Time Spent With Patient Total time spent is greater than 50% in coordination of care (as documented) at patient's floor/unit and/or counseling patient: - Subjective Interval history: Patient reports that his abdominal discomfort has improved and was walking around the room this morning upon exam Appreciate however still requiring Fentanyl for pain control Patient with resolving leukocytosis on IV antibiotic - Constitutional Vitals: Temp Pulse Resp BP Pulse Ox 98.7 F 106 18 147/92 93 04/03/18 07:15 04/03/18 09:59 04/03/18 09:59 04/03/18 07:15 04/03/18 07:41 General appearance: Present: A&O X 3, no acute distress - Respiratory Respiratory exam: Present: CTAB. Absent: accessory muscle use, rales, rhonchi, wheezes - Cardiovascular Cardiovascular exam: Present: RRR, +S1, +S2. Absent: diastolic murmur, gallop, rubs, systolic murmur - GI/Abdominal GI/Abdominal exam: Present: distended, soft, tenderness (Mild generalized tenderness to palpation). Absent: no peritoneal signs Internal Medicine: Result - Labs CBC & Chem 7: 04/03/18 04:37 04/03/18 04:37 Labs: Short CBC 04/03/18 Range/Units 04:37 WBC 14.2 H D (4.3-11.1) K/mcL Hgb 15.1 D (12.9-16.9) g/dL Hct 44.2 (37.5-50.1) % Plt Count 153 (140-400) K/mcL BMP 04/02/18 04/03/18 16:50 04:37 Sodium 135 L 136 Potassium 4.1 3.8 Chloride 105 104 Carbon Dioxide 21 L 25 BUN 21 H 15 Creatinine 1.44 H 0.99 Glucose 105 79 Calcium 8.6 9.1 - ABG Interpretation ABG results: PT/INR, D-dimer PT 15.9 Seconds (9.4-12.1) H 04/02/18 04:25 Consult Discharge Plan - Plan Referrals: NONE,PCP [Primary Care Provider] -
[2018-04-04] MEDS: OXYCODONE Oral CONC 10 MG/0.5 ML ORAL.SYG SL PRN ×5 (00:43→21:31)
[2018-04-04] MEDS: 0.9 % Sodium Chloride 1,000 ML IVC SCH ×4 (02:25→23:33)
[2018-04-04] MEDS: *HR* FentaNYL (PF) 100 MCG/2 ML VIAL IVP PRN ×8 (02:25→23:03)
[2018-04-04 05:39] LABS: Basophils % 0.1 %; Eosinophils # 0.1 K/mcL (0.0-0.6); Hematocrit 38.8 % (37.5-50.1); Immature Granulocytes % 0.5 % (0-4); Lymphocytes # 1.5 K/mcL (0.6-4.6); Mean Corpuscular HGB Conc 34.5 g/dL (31.6-35.5); Mean Corpuscular Hemoglobin 31.8 pg (28.0-33.3); Mean Corpuscular Volume 92.2 fL (83.0-100.0); Mean Platelet Volume 11.2 fL (9.4-12.4); Monocytes % 8.9 %; Neutrophils # 8.6 K/mcL (1.6-8.9); Platelet Count 171 K/mcL (140-400); Red Blood Count 4.21 M/mcL (4.19-5.50); Red Cell Distribution Width 13.1 % (11.5-14.5); Segmented Neutrophils % 76.5 %
[2018-04-04 05:41] LABS: BUN/Creatinine Ratio 12 (6-26); Blood Urea Nitrogen 8 mg/dL (6-20); Calcium 8.6 mg/dL (8.6-10.3); Carbon Dioxide 26 mEq/L (23-29); Chloride 101 mEq/L (98-107); Glucose 80 mg/dL (70-105); Osmolality,Calculated 275 (280-300); Potassium 3.5 mEq/L (3.5-5.1); Sodium 134 mEq/L (136-145); eGFR For African Americans > 60 (> 60); eGFR For Non-African Americans > 60 (> 60)
[2018-04-04 05:44] LABS: Hemoglobin 13.4 g/dL (12.9-16.9)
[2018-04-04] MEDS: Acetaminophen IV 1,000 MG/100 ML INFUS..BTL IVPB SCH ×4 (05:56→23:04)
[2018-04-04] MEDS: *HR* Heparin 5,000 UNIT/ML VIAL SQ SCH ×2 (05:57→17:13)
[2018-04-04] MEDS: Piperacillin/Tazobactam 3.375 GM in 0.9 % Sodium Chloride Mini Bag 100 ML IVPB SCH ×3 (07:52→23:05)
[2018-04-04] MEDS: Pantoprazole 40 MG VIAL IVP SCH (07:52)
--- NOTE | 2018-04-04 09:23 | General Surgery Progress Note ---
Date of Encounter: 04/04/18 Time of Encounter: 09:21 - Assessment and Plan (1) Acute perforated appendicitis Current Visit: Yes Status: Acute pain is improved, but present; tolerating CLD; still with leukocytosis, though downtrending cont CLD activity as tolerated cont IV abx: until normal WBC and afebrile x 24hrs; okay to transfer to regular floor will cont to follow Subjective Patient reports: no new complaints, feels better, still having pain, pain is less, tolerating liquids well, afebrile Objective Vital Signs - Last 8 Hours Temp Pulse Resp BP Pulse Ox 04/04/18 08:00 104 04/04/18 07:54 98.6 F 110 18 150/106 93 04/04/18 05:47 99.1 F 103 16 156/104 98 Intake and Output 04/03/18 04/04/18 04/04/18 23:59 07:59 15:59 Intake Total 2200 / 2200 2600 / 2600 800 / 800 Output Total 1450 / 1450 1275 / 1275 Balance 750 / 750 1325 / 1325 800 / 800 Intake: IV Fluids 1200 / 1200 1200 / 1200 0.9 % Sodium Chloride 1,000 ML 1000 / 1000 1000 / 1000 @ 150 mls/hr IVC .Q6H40M [facility] Rx #:[id number] Ofirmev 1,000 mg/100 ml 1,000 100 / 100 100 / 100 mg In 100 ml @ 400 mls/hr IVPB Q6HR [facility] Rx#:[id number] Zosyn 3.375 GM In 0.9 % Sodium 100 / 100 100 / 100 Chloride (Mini-Bag +) 100 ML @ 25 mls/hr IVPB Q8HR [facility] Rx#: [id number] Oral 1000 / 1000 1400 / 1400 800 / 800 Output: Urine 1450 / 1450 1275 / 1275 Other: Meal Dinner CLEARS Percent of Meal Consumed 0% # Voids 1 1 - General physical appearance no distress - Respiratory normal expansion, normal respiratory effort - Cardiovascular Cardiovascular exam: Present: RRR - Abdomen Abdomen: Present: tender (non peritoneal) - Neurologic CN 2-12 grossly intact - Musculoskeletal normal gait - Psychiatric oriented to time, oriented to person, oriented to place - Labs 04/04/18 05:08 04/04/18 05:08 Diabetes panel 04/04/18 Range/Units 05:08 Sodium 134 L (136-145) mEq/L Potassium 3.5 (3.5-5.1) mEq/L Chloride 101 (98-107) mEq/L Carbon Dioxide 26 (23-29) mEq/L BUN 8 (6-20) mg/dL Creatinine 0.69 L (0.70-1.30) mg/dL Glucose 80 (70-105) mg/dL Calcium 8.6 (8.6-10.3) mg/dL Calcium panel 04/04/18 Range/Units 05:08 Calcium 8.6 (8.6-10.3) mg/dL Pituitary panel 04/04/18 Range/Units 05:08 Sodium 134 L (136-145) mEq/L Potassium 3.5 (3.5-5.1) mEq/L Chloride 101 (98-107) mEq/L Carbon Dioxide 26 (23-29) mEq/L BUN 8 (6-20) mg/dL Creatinine 0.69 L (0.70-1.30) mg/dL Glucose 80 (70-105) mg/dL Calcium 8.6 (8.6-10.3) mg/dL Adrenal panel 04/04/18 Range/Units 05:08 Sodium 134 L (136-145) mEq/L Potassium 3.5 (3.5-5.1) mEq/L Chloride 101 (98-107) mEq/L Carbon Dioxide 26 (23-29) mEq/L BUN 8 (6-20) mg/dL Creatinine 0.69 L (0.70-1.30) mg/dL Glucose 80 (70-105) mg/dL Calcium 8.6 (8.6-10.3) mg/dL - VTE Documentation of Mechanical Device: Intermittent pneumatic compression device Consult Discharge Plan - Plan Referrals: NONE,PCP [Primary Care Provider] -
--- NOTE | 2018-04-04 10:08 | Internal Med Progress Note ---
Date of Encounter: 04/04/18 Time of Encounter: 11:00 - Assessment and plan (1) Acute perforated appendicitis Current Visit: Yes Status: Acute Assessment and plan: Patient with improvement in abdominal pain in addition to resolving leukocytosis Continue IV Zosyn (2) Severe sepsis Current Visit: Yes Status: Resolved Assessment and plan: Resolved; continue IV antibiotics as above (3) Acute renal failure Current Visit: Yes Status: Resolved Assessment and plan: Resolved; continue to monitor Qualifiers: Acute renal failure type: unspecified Qualified Code(s): N17.9 - Acute kidney failure, unspecified (4) Smoker Current Visit: Yes Status: Acute Assessment and plan: Smoking cessation (5) DVT prophylaxis Current Visit: Yes Status: Acute Assessment and plan: Subcutaneous heparin - Time Spent With Patient Total time spent is greater than 50% in coordination of care (as documented) at patient's floor/unit and/or counseling patient: - Subjective Interval history: Patient with continued improvement in abdominal pain Patient's leukocytosis also improving as well on IV antibiotics - Constitutional Vitals: Temp Pulse Resp BP Pulse Ox 98.6 F 104 18 150/106 93 04/04/18 07:54 04/04/18 08:00 04/04/18 07:54 04/04/18 07:54 04/04/18 07:54 General appearance: Present: A&O X 3, no acute distress - Respiratory Respiratory exam: Present: CTAB. Absent: accessory muscle use, rales, rhonchi, wheezes - Cardiovascular Cardiovascular exam: Present: RRR, +S1, +S2. Absent: diastolic murmur, gallop, rubs, systolic murmur - GI/Abdominal GI/Abdominal exam: Present: tenderness (Generalized tenderness to palpation) Internal Medicine: Result - Labs CBC & Chem 7: 04/04/18 05:08 04/04/18 05:08 Labs: Short CBC 04/04/18 Range/Units 05:08 WBC 11.3 H (4.3-11.1) K/mcL Hgb 13.4 D (12.9-16.9) g/dL Hct 38.8 (37.5-50.1) % Plt Count 171 (140-400) K/mcL Neutrophils # 8.6 (1.6-8.9) K/mcL BMP 04/04/18 05:08 Sodium 134 L Potassium 3.5 Chloride 101 Carbon Dioxide 26 BUN 8 Creatinine 0.69 L Glucose 80 Calcium 8.6 - ABG Interpretation ABG results: PT/INR, D-dimer PT 15.9 Seconds (9.4-12.1) H 04/02/18 04:25 - VTE Documentation of Mechanical Device: Intermittent pneumatic compression device Consult Discharge Plan - Plan Additional Instructions: Take your antibitoics as prescribed. Do not stop the antibiotics unless notified /instructed by your provider to do so Keep your follow up appointment as scheduled return for worsening abdominal pain and/or fever Referrals: Alvarado Flood MD [Partnered Physician] - 04/24/18 4:00 pm NONE,PCP [Primary Care Provider] -
[2018-04-04] MEDS: Simethicone 80 MG TAB.CHEW PO PRN ×2 (11:00→19:37)
--- NOTE | 2018-04-04 14:03 | Event Note ---
Date of Encounter: 04/04/18 Time of Encounter: 14:01 Event note placed for follow-up scheduling (see d/c plan) d/c atbx recommendations pending - Patient Status Disposition: Still a Patient Condition: Fair - Discharge Instructions Follow Up With: NONE,PCP [Primary Care Provider] - Alvarado Flood MD [Partnered Physician] - 04/24/18 4:00 pm Additional Instructions: Take your antibitoics as prescribed. Do not stop the antibiotics unless notified /instructed by your provider to do so Keep your follow up appointment as scheduled return for worsening abdominal pain and/or fever
[2018-04-05] MEDS: *HR* FentaNYL (PF) 100 MCG/2 ML VIAL IVP PRN ×3 (02:10→22:15)
[2018-04-05] MEDS: OXYCODONE Oral CONC 10 MG/0.5 ML ORAL.SYG SL PRN ×4 (03:55→19:50)
[2018-04-05] MEDS: Acetaminophen IV 1,000 MG/100 ML INFUS..BTL IVPB SCH ×2 (06:17→12:10)
[2018-04-05] MEDS: 0.9 % Sodium Chloride 1,000 ML IVC SCH ×3 (06:18→15:58)
[2018-04-05] MEDS: *HR* Heparin 5,000 UNIT/ML VIAL SQ SCH ×2 (06:19→15:55)
[2018-04-05] MEDS: Simethicone 80 MG TAB.CHEW PO PRN ×2 (06:45→22:24)
[2018-04-05] MEDS: Pantoprazole 40 MG VIAL IVP SCH (08:11)
[2018-04-05] MEDS: Piperacillin/Tazobactam 3.375 GM in 0.9 % Sodium Chloride Mini Bag 100 ML IVPB SCH ×2 (08:12→15:56)
--- NOTE | 2018-04-05 09:13 | Internal Med Progress Note ---
Date of Encounter: 04/05/18 Time of Encounter: 11:00 - Assessment and plan (1) Acute perforated appendicitis Current Visit: Yes Status: Acute Assessment and plan: Patient with improvement in abdominal pain Continue IV Zosyn Management per surgery team (2) Elevated BP without diagnosis of hypertension Current Visit: Yes Status: Acute Assessment and plan: Suspect secondary to pain Continue IV hydralazine as needed and monitor (3) Severe sepsis Current Visit: Yes Status: Resolved Assessment and plan: Resolved; continue IV antibiotics as above (4) Acute renal failure Current Visit: Yes Status: Resolved Assessment and plan: Resolved; continue to monitor Qualifiers: Acute renal failure type: unspecified Qualified Code(s): N17.9 - Acute kidney failure, unspecified (5) Smoker Current Visit: Yes Status: Acute Assessment and plan: Smoking cessation (6) DVT prophylaxis Current Visit: Yes Status: Acute Assessment and plan: Subcutaneous heparin - Time Spent With Patient Total time spent is greater than 50% in coordination of care (as documented) at patient's floor/unit and/or counseling patient: - Subjective Interval history: Patient with continued improvement in abdominal pain Patient sepsis and leukocytosis has resolved on IV antibiotics - Constitutional Vitals: Temp Pulse Resp BP Pulse Ox 98.2 F 99 18 153/97 94 04/05/18 07:05 04/05/18 07:05 04/05/18 07:05 04/05/18 07:05 04/05/18 07:05 General appearance: Present: A&O X 3, no acute distress - Respiratory Respiratory exam: Present: CTAB. Absent: accessory muscle use, rales, rhonchi, wheezes - Cardiovascular Cardiovascular exam: Present: RRR, +S1, +S2. Absent: diastolic murmur, gallop, rubs, systolic murmur - GI/Abdominal GI/Abdominal exam: Present: distended, tenderness Internal Medicine: Result - Labs CBC & Chem 7: 04/05/18 11:07 04/05/18 11:07 - ABG Interpretation ABG results: PT/INR, D-dimer PT 15.9 Seconds (9.4-12.1) H 04/02/18 04:25 - VTE Documentation of Mechanical Device: Intermittent pneumatic compression device Consult Discharge Plan - Plan Additional Instructions: Take your antibitoics as prescribed. Do not stop the antibiotics unless notified /instructed by your provider to do so Keep your follow up appointment as scheduled return for worsening abdominal pain and/or fever Referrals: Alvarado Flood MD [Partnered Physician] - 04/24/18 4:00 pm NONE,PCP [Primary Care Provider] -
[2018-04-05] MEDS ORDERED: Ketorolac 30 MG/ML VIAL IVP ONE (11:31)
[2018-04-05 11:36] LABS: Basophils % 0.2 %; Eosinophils # 0.2 K/mcL (0.0-0.6); Eosinophils % 1.6 %; Hematocrit 38.7 % (37.5-50.1); Hemoglobin 13.4 g/dL (12.9-16.9); Immature Granulocytes % 0.9 % (0-4); Lymphocytes # 2.6 K/mcL (0.6-4.6); Lymphocytes % 24.2 %; Mean Corpuscular HGB Conc 34.6 g/dL (31.6-35.5); Mean Corpuscular Hemoglobin 31.8 pg (28.0-33.3); Mean Corpuscular Volume 91.7 fL (83.0-100.0); Monocytes # 1.1 K/mcL (0.0-1.3); Monocytes % 10.4 %; Neutrophils # 6.6 K/mcL (1.6-8.9); Platelet Count 236 K/mcL (140-400); Red Blood Count 4.22 M/mcL (4.19-5.50); Red Cell Distribution Width 13.4 % (11.5-14.5); Segmented Neutrophils % 62.7 %
[2018-04-05 11:48] LABS: BUN/Creatinine Ratio 9 (6-26); Blood Urea Nitrogen 6 mg/dL (6-20); Calcium 9.1 mg/dL (8.6-10.3); Carbon Dioxide 29 mEq/L (23-29); Chloride 100 mEq/L (98-107); Glucose 90 mg/dL (70-105); Osmolality,Calculated 279 (280-300); Potassium 2.9 mEq/L (3.5-5.1); Sodium 136 mEq/L (136-145); eGFR For African Americans > 60 (> 60); eGFR For Non-African Americans > 60 (> 60)
--- NOTE | 2018-04-05 14:02 | General Surgery Progress Note ---
<John Lozano - Last Filed: 04/05/18 14:08> Date of Encounter: 04/05/18 Time of Encounter: 09:00 - Assessment and Plan (1) Acute perforated appendicitis Current Visit: Yes Status: Acute Continue IV ABX Review WBC 8 and plan for d/c if normal activity as tolerated continue CLD Subjective Patient reports: feels better, pain is less, no flatus, no bowel movement Narrative: Patient reports feeling better. Reports he is tolerating pain and is afebrile. Objective Vital Signs - Last 8 Hours Temp Pulse Resp BP Pulse Ox 04/05/18 11:35 99.0 F 98 18 158/101 97 04/05/18 11:08 99.0 F 98 18 158/101 97 04/05/18 08:05 98.2 F 99 18 153/97 94 04/05/18 07:05 98.2 F 99 18 153/97 94 Intake and Output 04/04/18 04/05/18 04/05/18 23:59 07:59 15:59 Intake Total 3990 / 3990 1900 / 1900 480 / 480 Output Total 3200 / 3200 1000 / 1000 Balance 790 / 790 900 / 900 480 / 480 Intake: IV Fluids 2250 / 2250 1200 / 1200 0.9 % Sodium Chloride 1,000 ML 1950 / 1950 1000 / 1000 @ 150 mls/hr IVC .Q6H40M [facility] Rx #:[id number] Ofirmev 1,000 mg/100 ml 1,000 200 / 200 100 / 100 mg In 100 ml @ 400 mls/hr IVPB Q6HR [facility] Rx#:[id number] Zosyn 3.375 GM In 0.9 % Sodium 100 / 100 100 / 100 Chloride (Mini-Bag +) 100 ML @ 25 mls/hr IVPB Q8HR [facility] Rx#: [id number] Oral 1740 / 1740 700 / 700 480 / 480 Output: Urine 3200 / 3200 1000 / 1000 Other: Meal CLEARS Lunch Percent of Meal Consumed 0% 100% Weight 118.5 kg - General physical appearance well developed, well nourished, no distress, no pain - Abdomen Abdomen: Present: distended, tender - Psychiatric oriented to time, oriented to person, oriented to place - Labs 04/05/18 11:07 04/05/18 11:07 Diabetes panel 04/05/18 Range/Units 11:07 Sodium 136 (136-145) mEq/L Potassium 2.9 L (3.5-5.1) mEq/L Chloride 100 (98-107) mEq/L Carbon Dioxide 29 (23-29) mEq/L BUN 6 (6-20) mg/dL Creatinine 0.67 L (0.70-1.30) mg/dL Glucose 90 (70-105) mg/dL Calcium 9.1 (8.6-10.3) mg/dL Calcium panel 04/05/18 Range/Units 11:07 Calcium 9.1 (8.6-10.3) mg/dL Pituitary panel 04/05/18 Range/Units 11:07 Sodium 136 (136-145) mEq/L Potassium 2.9 L (3.5-5.1) mEq/L Chloride 100 (98-107) mEq/L Carbon Dioxide 29 (23-29) mEq/L BUN 6 (6-20) mg/dL Creatinine 0.67 L (0.70-1.30) mg/dL Glucose 90 (70-105) mg/dL Calcium 9.1 (8.6-10.3) mg/dL Adrenal panel 04/05/18 Range/Units 11:07 Sodium 136 (136-145) mEq/L Potassium 2.9 L (3.5-5.1) mEq/L Chloride 100 (98-107) mEq/L Carbon Dioxide 29 (23-29) mEq/L BUN 6 (6-20) mg/dL Creatinine 0.67 L (0.70-1.30) mg/dL Glucose 90 (70-105) mg/dL Calcium 9.1 (8.6-10.3) mg/dL - VTE Documentation of Mechanical Device: Intermittent pneumatic compression device Consult Discharge Plan - Plan Additional Instructions: Take your antibitoics as prescribed. Do not stop the antibiotics unless notified /instructed by your provider to do so Keep your follow up appointment as scheduled return for worsening abdominal pain and/or fever Referrals: Alvarado Flood MD [Partnered Physician] - 04/24/18 4:00 pm NONE,PCP [Primary Care Provider] - <Kev Tanner - Last Filed: 04/05/18 21:47> Date of Encounter: 04/05/18 - Assessment and Plan (1) Acute perforated appendicitis Current Visit: Yes Status: Acute Objective Vital Signs - Last 8 Hours Temp Pulse Resp BP Pulse Ox 04/05/18 20:49 99.1 F 98 18 155/96 97 04/05/18 19:45 100 04/05/18 15:55 99.0 F 92 18 146/91 97 04/05/18 15:13 99.0 F 92 18 146/91 97 Intake and Output 04/05/18 04/05/18 04/05/18 07:59 15:59 23:59 Intake Total 1900 / 1900 2530 / 2530 Output Total 1000 / 1000 1200 / 1200 Balance 900 / 900 2530 / 2530 -1200 / -1200 Intake: IV Fluids 1200 / 1200 2050 / 2050 0.9 % Sodium Chloride 1,000 ML 1000 / 1000 1850 / 1850 @ 150 mls/hr IVC .Q6H40M [facility] Rx #:[id number] Ofirmev 1,000 mg/100 ml 1,000 100 / 100 100 / 100 mg In 100 ml @ 400 mls/hr IVPB Q6HR [facility] Rx#:[id number] Zosyn 3.375 GM In 0.9 % Sodium 100 / 100 100 / 100 Chloride (Mini-Bag +) 100 ML @ 25 mls/hr IVPB Q8HR [facility] Rx#: [id number] Oral 700 / 700 480 / 480 Output: Urine 1000 / 1000 1200 / 1200 Other: Meal Lunch Dinner Percent of Meal Consumed 100% 0% # Voids 1 - Labs 04/05/18 11:07 04/05/18 11:07 Diabetes panel 04/05/18 Range/Units 11:07 Sodium 136 (136-145) mEq/L Potassium 2.9 L (3.5-5.1) mEq/L Chloride 100 (98-107) mEq/L Carbon Dioxide 29 (23-29) mEq/L BUN 6 (6-20) mg/dL Creatinine 0.67 L (0.70-1.30) mg/dL Glucose 90 (70-105) mg/dL Calcium 9.1 (8.6-10.3) mg/dL Calcium panel 04/05/18 Range/Units 11:07 Calcium 9.1 (8.6-10.3) mg/dL Pituitary panel 04/05/18 Range/Units 11:07 Sodium 136 (136-145) mEq/L Potassium 2.9 L (3.5-5.1) mEq/L Chloride 100 (98-107) mEq/L Carbon Dioxide 29 (23-29) mEq/L BUN 6 (6-20) mg/dL Creatinine 0.67 L (0.70-1.30) mg/dL Glucose 90 (70-105) mg/dL Calcium 9.1 (8.6-10.3) mg/dL Adrenal panel 04/05/18 Range/Units 11:07 Sodium 136 (136-145) mEq/L Potassium 2.9 L (3.5-5.1) mEq/L Chloride 100 (98-107) mEq/L Carbon Dioxide 29 (23-29) mEq/L BUN 6 (6-20) mg/dL Creatinine 0.67 L (0.70-1.30) mg/dL Glucose 90 (70-105) mg/dL Calcium 9.1 (8.6-10.3) mg/dL - Attending Attestation Patient seen and examined. I have reviewed all labs, imaging and notes, including this one. I agree with the above assessment and plan and wish to add the following... 32M with perforated appendix currently on antibiotics. pain improved; afebrile ; normal wbc; tolerating CLD; having bowel function; okay to advance to regular diet SLIV when tolerating regular diet okay to transfer to regular floor recheck CBC in AM; if WBC wnl and afebrile, will plan for transition to PO abx and ischarge on 04/06
[2018-04-05] MEDS: Ketorolac 30 MG/ML VIAL IVP PRN (18:08)
[2018-04-06] MEDS: Piperacillin/Tazobactam 3.375 GM in 0.9 % Sodium Chloride Mini Bag 100 ML IVPB SCH ×2 (00:28→07:36)
[2018-04-06] MEDS: Ketorolac 30 MG/ML VIAL IVP PRN ×3 (00:28→11:14)
[2018-04-06] MEDS: 0.9 % Sodium Chloride 1,000 ML IVC SCH (01:21)
[2018-04-06] MEDS: OXYCODONE Oral CONC 10 MG/0.5 ML ORAL.SYG SL PRN ×2 (02:29→08:51)
[2018-04-06] MEDS: *HR* FentaNYL (PF) 100 MCG/2 ML VIAL IVP PRN (04:38)
[2018-04-06] MEDS: *HR* Heparin 5,000 UNIT/ML VIAL SQ SCH (06:10)
[2018-04-06 07:33] LABS: Basophils % 0.2 %; Eosinophils # 0.2 K/mcL (0.0-0.6); Eosinophils % 1.6 %; Hematocrit 36.9 % (37.5-50.1); Immature Granulocytes % 1.8 % (0-4); Lymphocytes # 2.3 K/mcL (0.6-4.6); Lymphocytes % 23.4 %; Mean Corpuscular HGB Conc 35.2 g/dL (31.6-35.5); Mean Corpuscular Hemoglobin 31.7 pg (28.0-33.3); Mean Platelet Volume 10.5 fL (9.4-12.4); Monocytes % 10.3 %; Neutrophils # 6.2 K/mcL (1.6-8.9); Platelet Count 253 K/mcL (140-400); Red Cell Distribution Width 13.5 % (11.5-14.5); Segmented Neutrophils % 62.7 %
[2018-04-06] MEDS: Pantoprazole 40 MG VIAL IVP SCH (07:36)
--- NOTE | 2018-04-06 09:09 | Internal Med Progress Note ---
Date of Encounter: 04/06/18 - Assessment and plan (1) Acute perforated appendicitis Current Visit: Yes Status: Acute (2) Elevated BP without diagnosis of hypertension Current Visit: Yes Status: Acute (3) Severe sepsis Current Visit: Yes Status: Resolved (4) Acute renal failure Current Visit: Yes Status: Resolved Qualifiers: Acute renal failure type: unspecified Qualified Code(s): N17.9 - Acute kidney failure, unspecified (5) Smoker Current Visit: Yes Status: Acute (6) DVT prophylaxis Current Visit: Yes Status: Acute - Time Spent With Patient Total time spent is greater than 50% in coordination of care (as documented) at patient's floor/unit and/or counseling patient: - Subjective Interval history: Patient with continued improvement in abdominal pain Patient sepsis and leukocytosis has resolved on IV antibiotics - Constitutional Vitals: Temp Pulse Resp BP Pulse Ox 99.1 F 89 22 165/98 97 04/06/18 07:30 04/06/18 07:30 04/06/18 07:30 04/06/18 07:30 04/06/18 07:30 General appearance: Present: A&O X 3, no acute distress Internal Medicine: Result - Labs CBC & Chem 7: 04/06/18 07:23 04/05/18 11:07 Labs: Short CBC 04/05/18 04/06/18 Range/Units 11:07 07:23 WBC 10.6 9.8 (4.3-11.1) K/mcL Hgb 13.4 13.0 (12.9-16.9) g/dL Hct 38.7 36.9 L (37.5-50.1) % Plt Count 236 253 (140-400) K/mcL Neutrophils # 6.6 6.2 (1.6-8.9) K/mcL BMP 04/05/18 11:07 Sodium 136 Potassium 2.9 L Chloride 100 Carbon Dioxide 29 BUN 6 Creatinine 0.67 L Glucose 90 Calcium 9.1 - ABG Interpretation ABG results: PT/INR, D-dimer PT 15.9 Seconds (9.4-12.1) H 04/02/18 04:25 - VTE Documentation of Mechanical Device: Intermittent pneumatic compression device Consult Discharge Plan - Plan Additional Instructions: Take your antibitoics as prescribed. Do not stop the antibiotics unless notified /instructed by your provider to do so Keep your follow up appointment as scheduled return for worsening abdominal pain and/or fever Referrals: Alvarado Flood MD [Partnered Physician] - 04/24/18 4:00 pm NONE,PCP [Primary Care Provider] -
--- NOTE | 2018-04-06 09:51 | General Surgery Progress Note ---
Date of Encounter: 04/06/18 Time of Encounter: 09:50 (\) - Assessment and Plan (1) Acute perforated appendicitis Current Visit: Yes Status: Acute pain is improved, but present; tolerating CLD; still with leukocytosis, though downtrending reg diet change to PO abx: lev/flagyl x 2 weeks okay for discharge from surgery standpoint; follow up with Dr. Flood in 2 weeks Subjective Patient reports: no new complaints, feels better, pain is less, flatus, bowel movement, afebrile Objective Vital Signs - Last 8 Hours Temp Pulse Resp BP Pulse Ox 04/06/18 07:30 99.1 F 89 22 165/98 97 04/06/18 04:35 89 04/06/18 03:50 99.1 F 91 22 165/98 97 Intake and Output 04/05/18 04/06/18 04/06/18 23:59 07:59 15:59 Intake Total 100 / 100 1750 / 1750 Output Total 1700 / 1700 1300 / 1300 Balance -1600 / -1600 450 / 450 Intake: IV Fluids 100 / 100 1100 / 1100 0.9 % Sodium Chloride 1,000 ML 1000 / 1000 @ 75 mls/hr IVC .[id number] [facility] Rx #:[id number] Zosyn 3.375 GM In 0.9 % Sodium 100 / 100 100 / 100 Chloride (Mini-Bag +) 100 ML @ 25 mls/hr IVPB Q8HR [facility] Rx#: [id number] Oral 650 / 650 Output: Urine 1700 / 1700 1300 / 1300 Other: Meal Dinner Percent of Meal Consumed 0% # Voids 1 Weight 118.7 kg Patient Weight 04/06/18 23:59 Weight 118.7 kg - General physical appearance no distress - Respiratory normal expansion, normal respiratory effort - Cardiovascular Cardiovascular exam: Present: RRR - Abdomen Abdomen: Present: soft, tender (non peritoneal) - Neurologic CN 2-12 grossly intact - Musculoskeletal normal gait, normal posture - Psychiatric oriented to time, oriented to person, oriented to place - Labs 04/06/18 07:23 04/05/18 11:07 Diabetes panel 04/05/18 Range/Units 11:07 Sodium 136 (136-145) mEq/L Potassium 2.9 L (3.5-5.1) mEq/L Chloride 100 (98-107) mEq/L Carbon Dioxide 29 (23-29) mEq/L BUN 6 (6-20) mg/dL Creatinine 0.67 L (0.70-1.30) mg/dL Glucose 90 (70-105) mg/dL Calcium 9.1 (8.6-10.3) mg/dL Calcium panel 04/05/18 Range/Units 11:07 Calcium 9.1 (8.6-10.3) mg/dL Pituitary panel 04/05/18 Range/Units 11:07 Sodium 136 (136-145) mEq/L Potassium 2.9 L (3.5-5.1) mEq/L Chloride 100 (98-107) mEq/L Carbon Dioxide 29 (23-29) mEq/L BUN 6 (6-20) mg/dL Creatinine 0.67 L (0.70-1.30) mg/dL Glucose 90 (70-105) mg/dL Calcium 9.1 (8.6-10.3) mg/dL Adrenal panel 04/05/18 Range/Units 11:07 Sodium 136 (136-145) mEq/L Potassium 2.9 L (3.5-5.1) mEq/L Chloride 100 (98-107) mEq/L Carbon Dioxide 29 (23-29) mEq/L BUN 6 (6-20) mg/dL Creatinine 0.67 L (0.70-1.30) mg/dL Glucose 90 (70-105) mg/dL Calcium 9.1 (8.6-10.3) mg/dL - VTE Documentation of Mechanical Device: Intermittent pneumatic compression device Consult Discharge Plan - Plan Additional Instructions: Take your antibitoics as prescribed. Do not stop the antibiotics unless notified /instructed by your provider to do so Keep your follow up appointment as scheduled return for worsening abdominal pain and/or fever Referrals: Alvarado Flood MD [Partnered Physician] - 04/24/18 4:00 pm NONE,PCP [Primary Care Provider] -
[2018-04-06 10:06] LABS: BUN/Creatinine Ratio 9 (6-26); Blood Urea Nitrogen 6 mg/dL (6-20); Carbon Dioxide 27 mEq/L (23-29); Chloride 102 mEq/L (98-107); Glucose 112 mg/dL (70-105); Osmolality,Calculated 282 (280-300); Potassium 3.1 mEq/L (3.5-5.1); Sodium 137 mEq/L (136-145); eGFR For African Americans > 60 (> 60); eGFR For Non-African Americans > 60 (> 60)
--- NOTE | 2018-04-06 10:40 | Discharge Summary ---
Date of Encounter: 04/06/18 Time of Encounter: 10:38 - Discharge Diagnosis (1) Acute perforated appendicitis Priority: Primary Status: Acute Comments: perforated appendicitis normal WBC, afebrile for 48hrs; tolerating diet follow up with Dr. Flood in 2 weeks General Surgery Exam Initial Vital Signs Temp Pulse Resp BP Pulse Ox 98.1 F 144 20 137/92 97 04/02/18 03:59 04/02/18 03:59 04/02/18 03:59 04/02/18 03:59 04/02/18 03:59 - General physical appearance no distress - Respiratory normal expansion, normal respiratory effort - Cardiovascular Cardiovascular exam: Present: RRR - Abdomen Abdomen general surgery: Present: soft, tender - Neurologic Present: CN 2-12 grossly intact - Musculoskeletal Present: normal gait, normal posture - Hospital Course Hospital course: Mr. Qureshi is a 32 year old male - Time Spent with Patient Total time spent providing and/or coordinating discharge services: Greater than 30 minutes - Discharge Medications Prescriptions: Amoxicillin/Clavulanate [Augmentin] 875 mg PO BIDWM 14 Days #28 tablet Home Medications: Ibuprofen [Motrin Ib] 200 mg PO DAILY PRN 04/02/18 [History] Amoxicillin/Clavulanate [Augmentin] 875 mg PO BIDWM 14 Days #28 tablet 04/06/18 [Rx] Allergies/Adverse Reactions: 3 Allergy/AdvReac Type Severity Reaction Status Date / Time No Known Allergies Allergy Verified 04/02/18 03:59 Date of admission: 04/02/18 06:47 Primary care physician: PCP NONE Discharging clinician: Kev Tanner Anticipated date of discharge: 04/06/18 Labs on day of discharge: Labs from last 24 hours 04/06/18 04/06/18 04/05/18 07:23 07:23 11:07 WBC 9.8 RBC 4.10 L Hgb 13.0 Hct 36.9 L MCV 90.0 MCH 31.7 MCHC 35.2 RDW 13.5 Plt Count 253 MPV 10.5 Immature Gran % 1.8 Seg Neutrophils % 62.7 Lymphocytes % 23.4 Monocytes % 10.3 Eosinophils % 1.6 Basophils % 0.2 Neutrophils # 6.2 Lymphocytes # 2.3 Monocytes # 1.0 Eosinophils # 0.2 Basophils # 0.0 Sodium 137 136 Potassium 3.1 L 2.9 L Chloride 102 100 Carbon Dioxide 27 29 BUN 6 6 Creatinine 0.64 L 0.67 L Est GFR ( Amer) > 60 > 60 Est GFR (Non-Af Amer) > 60 > 60 BUN/Creatinine Ratio 9 9 Glucose 112 H 90 Calculated Osmolality 282 279 L Calcium 9.0 9.1 04/05/18 11:07 WBC 10.6 RBC 4.22 Hgb 13.4 Hct 38.7 MCV 91.7 MCH 31.8 MCHC 34.6 RDW 13.4 Plt Count 236 MPV 11.0 Immature Gran % 0.9 Seg Neutrophils % 62.7 Lymphocytes % 24.2 Monocytes % 10.4 Eosinophils % 1.6 Basophils % 0.2 Neutrophils # 6.6 Lymphocytes # 2.6 Monocytes # 1.1 Eosinophils # 0.2 Basophils # 0.0 Sodium Potassium Chloride Carbon Dioxide BUN Creatinine Est GFR ( Amer) Est GFR (Non-Af Amer) BUN/Creatinine Ratio Glucose Calculated Osmolality Calcium - Patient Status Disposition: Home, Self-Care Condition: Fair Overall status at discharge: patient is progressing back to baseline - Discharge Instructions Follow Up With: Alvarado Flood MD [Partnered Physician] - 04/24/18 4:00 pm NONE,PCP [Primary Care Provider] - Additional Instructions: Take your antibitoics as prescribed. Do not stop the antibiotics unless notified /instructed by your provider to do so Keep your follow up appointment as scheduled return for worsening abdominal pain and/or fever - Diet and Activity Activity: increase activity as tolerated Diet: advance to your usual diet
[2018-04-07 06:59] VITALS: BP 104/68
== END 2018-04-06 11:35 | disposition home or self-care (01) | DRG 871 ==
LOC: EMEROO 03:58 → 2NNU 06:47 → SUATTDRO 06:47 → 2NNU 08:05
PROVIDERS: ADMIT Surgery; ATTEND Hospitalist